=== PATIENT | female | born 1955 | race African-American/Black ===

== ENCOUNTER 2017-06-09 20:51 | Observation (INO) | payer OTHER ==
[2017-06-09 21:44] LABS: #Basophils 0.1 thou/uL (0.0-0.2); #Eosinphils 0.2 thou/uL (0.0-0.7); #Lymphocytes 2.9 thou/uL (1.20-3.40); #Monocytes 0.4 thou/uL (0.11-0.59); #Neutrophils 3.2 thou/uL (1.40-6.50); %Eosinophils 2.8 % (0.0-10.0); %Monocytes 5.8 % (0.0-10.0); %Neutrophils 47.4 % (42.0-75.0); Hemoglobin 15.1 g/dL (12.0-16.0); Mean Corpuscular HGB CONC 33.1 g/dL (32.0-36.0); Mean Corpuscular Hemoglobin 29.6 pg (27.0-31.0); Mean Corpuscular Volume 89.3 fl (81.0-99.0); Mean Platelet Volume 9.6 fL (7.4-10.4); Platelet Count 181 thou/uL (130-400); RBC Distribution Width 12.4 % (11.5-14.5); Red Blood Cell (RBC) Count 5.12 mill/uL (4.20-5.40); White Blood Cell (WBC) Count 6.8 thou/uL (4.8-10.8)
[2017-06-09 21:57] LABS: Bilirubin Negative (Negative); Blood, Urine Negative (Negative); Clarity CLEAR (Clear); Glucose, Urine (Dipstick) Negative (Negative); Leukocyte Negative (Negative); Nitrite Negative (Negative); Protein, Urine (Dipstick) Negative (Neg-Trace); Specific Gravity, Urine 1.003 (1.002-1.036); Urobilinogen 0.2 mg/dL (0.2-1.0); pH, Urine 7.5 (5.0-9.0)
--- NOTE | 2017-06-09 21:59 | RAD ---
AP VIEW OF THE CHEST: 06/09/17 INDICATION: Dizziness. COMPARISON: Prior exam dated 10/07/08. FINDINGS: There is mild cardiomegaly. Pulmonary vasculature is normal. No confluent air space opacity, pleural effusion or pneumothorax is evident. There is slight elevation of the diaphragm that is stable. No a cute osseous abnormality is noted. IMPRESSION: Mild cardiomegaly. POS: [facility]
[2017-06-09 22:05] LABS: ALT (SGPT) 23 U/L (8-55); AST (SGOT) 17 U/L (5-34); Albumin 4.5 g/dL (3.5-5.0); Alkaline Phosphatase 81 U/L (40-150); Anion Gap 16 mmol/L (10-20); BUN (Urea Nitrogen) 16 mg/dL (9.8-20.1); Bilirubin, Total 0.3 mg/dL (0.2-1.2); Calc. Creatinine Clearance 0 mL/min (70-130); Calcium 9.7 mg/dL (7.8-10.44); Carbon Dioxide 27 mmol/L (22-29); Chloride 98 mmol/L (98-107); Estimated GFR-MDRD Greater than 90; Globulin 3.1 g/dL (2.4-3.5); Glucose 96 mg/dL (70-105); Potassium 3.3 mmol/L (3.5-5.1); Protein, Total 7.6 g/dL (6.0-8.3); Sodium 138 mmol/L (136-145)
[2017-06-09 22:10] LABS: CKMB 1.3 ng/mL (0-6.6); Troponin I Less than 0.010 ng/mL (< 0.028)
[2017-06-10 00:55] LABS: Troponin I Less than 0.010 ng/mL (< 0.028)
[2017-06-10] MEDS ORDERED: Acetaminophen 325 MG TAB PO PRN (01:11)
[2017-06-10] MEDS ORDERED: Ondansetron HCl/PF 4 MG/2 ML Vial IVP PRN (01:11)
[2017-06-10] MEDS ORDERED: Ondansetron ODT 4 MG TAB SL PRN (01:11)
[2017-06-10 01:30] VITALS: BMI 36.3
[2017-06-10 05:04] LABS: Troponin I Less than 0.010 ng/mL (< 0.028)
--- NOTE | 2017-06-10 08:07 | HP ---
HISTORY OF PRESENT ILLNESS: This is a 7-year-old black female who presents with elevated blood press ure and dizziness. The patient has a history of hypertension and works as a nurse here at [employer] . She was doing well until last night she became lightheaded and dizzy. She checked her blood press ure and it was found to be 198/87. Repeat was about the same. She only complained of twinges of tejal st pain, but no actual chest pain or shortness of breath. She became concerned and presented to the emergency room. PAST MEDICAL HISTORY: Hypertension, hyperlipidemia, vitamin D deficiency. PAST SURGICAL HISTORY: Hysterectomy, colonoscopy normal in 2013. FAMILY HISTORY: Father with heart disease, hypertension, hyperlipidemia, CVA, rheumatoid arthritis. Mother with rheumatoid arthritis. Siblings with hypertension and heart disease. The patient does h ave 5 brothers, 3 sisters and 1 daughter. SOCIAL HISTORY: She is . She does not smoke. She does not drink. 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 She lives with her daughter and granddaughter. Her siblings are all over the world. She is from [facility] and has lived [address] [place] [address]. ALLERGIES: CELEBREX, which causes headache, HONEY causes stomachache. MEDICATIONS: Vitamin D 2000 units daily, metoprolol 50 ER q.a.m., HCTZ 25 q.a.m., simvastatin 40 caro ly, fish oil 1 daily p.r.n. REVIEW OF SYSTEMS: As above. PHYSICAL EXAMINATION: VITAL SIGNS: Temperature 98.0, pulse 62, respirations 18, pulse ox 96, blood pressure 116/57. GENERAL: No acute distress. No complaints of chest pain. LUNGS: Clear. HEART: Regular rate and rhythm. LUNGS: Clear. ABDOMEN: Soft, nontender. EXTREMITIES: No edema. LABORATORY AND X-RAY FINDINGS: UA clear. Electrolytes normal. Creatinine 0.76, BUN 16. Troponin l ess than 0.010 x3. White count 6.8, H&H 15 and 45, platelet 181. ASSESSMENT: 1. Chest pain, rule out myocardial infarction. 2. Hypertension. 3. Hyperlipidemia. PLAN: 1. Echo. 2. Cardiolite stress test. If these are normal plan to discharge home.
[2017-06-10] MEDS ORDERED: Metoprolol Tartrate 25 MG TAB PO SCH (09:00)
[2017-06-10] MEDS ORDERED: Aspirin 325 MG TAB PO SCH (09:00)
--- NOTE | 2017-06-10 14:44 | NM ---
STRESS ONLY NUCLEAR MEDICINE MYOCARDIAL PERFUSION EXAM: DATE: 06/10/17. HISTORY: Chest pain, dizziness, and high blood pressure, assess for ischemia. FINDINGS: SPECT imaging of the left ventricular myocardium during stress obtained following the intravenous adm inistration of 28 mCi Technetium 99m labeled sestamibi. FINDINGS: Stress imaging demonstrates no perfusion defect. Left ventricular wall motion is normal. Ejection f raction is calculated at 81% with EDV of 67 mL and ESV of 13 mL. IMPRESSION: Unremarkable stress only nuclear medicine myocardial perfusion exam. POS: [facility]
[2017-06-10 21:53] VITALS: BP 142/72
[2017-06-10 21:58] VITALS: TEMP 97.3
--- NOTE | 2017-06-13 10:43 | DIS ---
DATE OF DISCHARGE: 06/10/2017 DISCHARGE DIAGNOSES: 1. Chest pain. 2. Hypertension. 3. Hyperlipidemia. 4. Cardiolite stress test normal. DISCHARGE MEDICATIONS: Vitamin D 2000 mg daily, metoprolol ER 50 daily, HCTZ 25 q.a.m., simvastatin 40 daily, fish oil 1000 mg daily. BRIEF HISTORY: This is a 61-year-old black female who has presented with elevated blood pressure and dizziness. She has history of hypertension, works at [employer] as a nurse. She was doing well unt il the night of admission she became lightheaded and dizzy. She checked her blood pressure and it wa s found to be 198/87. The repeat blood pressures remained high. She became concerned and had twinge s of chest pain, and decided to go to the emergency room. The patient was admitted. HOSPITAL COURSE: The patient's atypical chest pain was resolved. No reoccurrence. She underwent a Cardiolite stress test which was found to be normal. The patient's blood pressure also returned to n ormal. She will be discharged and follow up in the office in the a.m.
== END 2017-06-10 15:41 | disposition home or self-care (01) ==
LOC: ERS 20:51 → 2SW 23:32
PROVIDERS: ADMIT Family Medicine; ATTEND Family Medicine
DX: R07.9 Chest pain, unspecified (principal); I10 Essential (primary) hypertension; E78.5 Hyperlipidemia, unspecified; E55.9 Vitamin D deficiency, unspecified; Z79.899 Other long term (current) drug therapy; Z88.6 Allergy status to analgesic agent; Z91.018 Allergy to other foods; Z90.710 Acquired absence of both cervix and uterus; Z98.890 Other specified postprocedural states; Z82.49 Family history of ischemic heart disease and other diseases of the circulatory system
CPT/HCPCS: 36415; 71045; 78452; 80053; 81003; 82553; 83880; 84484; 85025; 93005; 93017; 93306; A4216; A9500; G0378

== ENCOUNTER 2017-06-13 09:18 | Outpatient (CLI) | payer OTHER ==
--- NOTE | 2017-06-13 09:28 | MMO ---
BILATERAL MAMMOGRAMS: DATE: 06/13/17 HISTORY: Screening mammography. COMPARISON: Previous exams dating back to 05/15/13. FINDINGS: Heterogeneously dense fibroglandular tissue and benign-appearing calcifications are again demonstrate d. Intramammary lymph nodes and multiple partially obscured oval and lobular isodense nodules of vary ing size throughout each breast are stable and consistent with a benign process. No new dominant mass or suspicious calcifications. The study was evaluated with the assistance of computer-aided detection. IMPRESSION: BIRADS 2: Benign Finding(s) Suggest routine follow-up. POS: [facility]
== END 2017-06-13 09:19 | disposition home or self-care (01) ==
LOC: SCSMAMMO 09:18
PROVIDERS: ATTEND Family Medicine
DX: Z12.31 Encounter for screening mammogram for malignant neoplasm of breast (principal)
CPT/HCPCS: 77067

== ENCOUNTER 2018-06-16 09:35 | Outpatient (CLI) | payer OTHER ==
--- NOTE | 2018-06-16 10:40 | MMO ---
Bilateral MAMMO Bilat Screen [facility]. CLINICAL HISTORY: Patient is 62 years old and is seen for screening. The patient has no family history of breast cancer. The patient has no personal history of cancer. VIEWS: The views performed were: bilateral craniocaudal with tomosynthesis and bilateral mediolateral oblique with tomosynthesis. FILMS COMPARED: The present examination has been compared to prior imaging studies performed at [facility] on 01/30/2010, 02/11/2010, 08/11/2011, 05/15/2013, 05/21/2014, 05/28/2015, 06/02/2016 and 06/13/2017. MAMMOGRAM FINDINGS: There are scattered fibroglandular densities. Finding 1: There are stable benign appearing calcifications seen in both breasts. Finding 2: There are stable benign appearing densities seen in both breasts. There are no suspicious masses, suspicious calcifications, or new areas of architectural distortion. IMPRESSION: THERE IS NO MAMMOGRAPHIC EVIDENCE OF MALIGNANCY. A ROUTINE FOLLOW-UP MAMMOGRAM IN 1 YEAR IS RECOMMENDED. THE RESULTS OF THIS EXAM WERE SENT TO THE PATIENT. ACR BI-RADS Category 2 - Benign finding MAMMOGRAPHY NOTE: 1. A negative mammogram report should not delay a biopsy if a dominant of clinically suspicious mass is present. 2. Approximately 10% to 15% of breast cancers are not detected by mammography. 3. Adenosis and dense breasts may obscure an underlying neoplasm.
== END 2018-06-16 09:36 | disposition home or self-care (01) ==
LOC: BICMAMMO 09:35
PROVIDERS: ATTEND Family Medicine
DX: Z12.31 Encounter for screening mammogram for malignant neoplasm of breast (principal)
CPT/HCPCS: 77063; 77067

== ENCOUNTER 2021-10-30 11:00 | Outpatient (CLI) | payer BC | END 2021-10-30 11:01 | disposition home or self-care (01) | LOC: BICMAMMO 11:00 | PROVIDERS: ATTEND Family Medicine | DX: Z12.31 Encounter for screening mammogram for malignant neoplasm of breast (principal) | CPT/HCPCS: 77063; 77067 ==

== ENCOUNTER 2023-02-06 20:41 | Emergency (ER) | payer BC ==
[2023-02-06] MEDS ORDERED: Orphenadrine Citrate 60 MG/2 ML VIAL ONE (21:39)
[2023-02-06] MEDS ORDERED: Ibuprofen 800 MG TAB ONE (21:44)
== END 2023-02-06 21:46 | disposition home or self-care (01) ==
LOC: ERS 20:41
DX: S39.012A Strain of muscle, fascia and tendon of lower back, initial encounter (principal); I10 Essential (primary) hypertension; E78.00 Pure hypercholesterolemia, unspecified; X50.0XXA Overexertion from strenuous movement or load, initial encounter; Y99.0 Civilian activity done for income or pay; Z79.899 Other long term (current) drug therapy
CPT/HCPCS: 72040; J2360

== ENCOUNTER 2023-02-07 12:19 | Outpatient (CLI) | payer BC | END 2023-02-07 12:20 | disposition home or self-care (01) | LOC: BICMAMMO 12:19 | PROVIDERS: ATTEND Family Medicine | DX: Z12.31 Encounter for screening mammogram for malignant neoplasm of breast (principal) | CPT/HCPCS: 77063; 77067 ==

== ENCOUNTER 2023-03-30 12:08 | Outpatient (CLI) | payer BC | END 2023-03-30 12:09 | disposition home or self-care (01) | LOC: RAD 12:08 | PROVIDERS: ATTEND Family Medicine | DX: M25.532 Pain in left wrist (principal) ==

== ENCOUNTER 2023-08-03 14:51 | Emergency (ER) | payer BC ==
[2023-08-03] MEDS ORDERED: Dexamethasone 10 MG/ML VIAL ONE (16:52)
[2023-08-03] MEDS ORDERED: Acetaminophen 500 MG TAB ONE (16:52)
== END 2023-08-03 17:11 | disposition home or self-care (01) ==
LOC: ERS 14:51
DX: M53.3 Sacrococcygeal disorders, not elsewhere classified (principal); E78.00 Pure hypercholesterolemia, unspecified; I10 Essential (primary) hypertension; W19.XXXA Unspecified fall, initial encounter; Y99.0 Civilian activity done for income or pay; Z79.899 Other long term (current) drug therapy
CPT/HCPCS: 96372; 99282; J1100

== ENCOUNTER 2024-02-29 12:57 | Outpatient (CLI) | payer BC | END 2024-02-29 12:58 | disposition home or self-care (01) | LOC: BICMAMMO 12:57 | PROVIDERS: ATTEND Family Medicine | DX: Z12.31 Encounter for screening mammogram for malignant neoplasm of breast (principal) | CPT/HCPCS: 77063; 77067 ==